=== PATIENT | male | born 2005 | race Two or more races ===

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

== ENCOUNTER 2024-03-20 09:20 | Outpatient (AMB) | payer OTHER, SELFPAY ==
[2024-03-20 10:30] VITALS: BP 122/82; PULSE 81; TEMP 36.7; O2SAT 97; BMI 39.6
--- NOTE | 2024-03-20 10:30 | AM.OFFWIN_ITS ---
Intake Vital Signs 03/20/24 10:30 Height 6 ft Weight 292 lb BMI 39.6 BP 122/82 Blood Pressure Location Lt brachial Position Sitting Pulse 81 Pulse Source Pulse Oximeter Temp 98.0 F Temp Source Oral Pulse Oximetry (%) 97 Oxygen Delivery Method Room Air Intake Visit Reasons: [employer] Severe back pain/WC Intake Note: Pt is here today c/o mid back pain lifting mop at work 03/06/24 Allergies amoxicillin [AMOXICILLIN] Allergy (Unknown, Verified 03/20/24 10:58) RASH Medication List - Last Reconciled 03/20/24 by Dee Chadwick, SOCIAL MEDIA EXECUTIVE- No Known Home Meds HPI HPI Comments History of Present Illness Details 18-year-old male here today in a workman 's comp case. 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 He reports that the pain radiates to both sides. Has been present since this incident. The pain comes and goes. Has been able to return to work however his pain worsened yesterday and this morning and that is why he is here. He has been using Aleve and stretching with some relief. He denies any red flag symptoms associated with back pain Exam Awake alert oriented Neurovascularly intact ga x4 No spinal tenderness, neck is full range of motion, no paraspinal pain or spasm. Has pain with hinge movements and with reaching overhead Plan Meloxicam daily taken with food to help the pain. Avoid OTC NSAIDs while using this medication. Okay to supplement with Tylenol if needed for breakthrough pain. Sparing use of baclofen as needed for muscle spasm. Lidocaine patches as needed. Advised to gently stretch. Avoid periods of prolonged immobility. Out of work note for today and tomorrow. Advised of the need to follow-up with primary care. Reports he does not have a primary care physician. Asked him to talk to flex the lead front end developer to establish care with a primary care provider. He will need to follow-up with occupational health or primary care provider for any other work restrictions. This note is constructed using voice recognition software. While every effort has been made to ensure accuracy in ramp jockey, still errors may have been included Sometimes, these errors may affect the content or meaning of the given sentence . [facility], [facility] Medical History No known health problems Physical Exam Vital Signs: Last Vital Signs Temp 98.0 F 03/20/24 10:30 Pulse 81 03/20/24 10:30 BP 122/82 03/20/24 10:30 Pulse Ox 97 03/20/24 10:30 Oxygen Delivery Method Room Air 03/20/24 10:30 BMI result Body Mass Index 39.6 Assessment & Plan Assessment & Plan (1) Encounter related to worker's compensation claim: Code(s): Z02.6 - Encounter for examination for insurance purposes Plan: . (2) Upper back pain: Code(s): M54.9 - Dorsalgia, unspecified Plan: . (3) Back muscle spasm: Code(s): M62.830 - Muscle spasm of back Plan: . Medications: New lidocaine 4% (Aspercreme (lidocaine)) on for 12 hours off for 12 hours 1 patch topical DAILY PRN 60 ea 0RF pain meloxicam 7.5 mg PO DAILY 14 tabs 0RF baclofen 10 mg PO BID PRN 8 tabs 0RF muscle spasm Coding Level of Care Code Est Pt Level 3 (00531) Diagnoses Encounter related to worker's compensation claim Z02.6 Upper back pain M54.9 Back muscle spasm M62.830
== END 2024-03-20 11:25 | disposition home or self-care (01) ==
PROVIDERS: Visit Provider Nurse Practitioner Family
DX: M54.9 Dorsalgia, unspecified (principal); M62.830 Muscle spasm of back; Z04.3 Encounter for examination and observation following other accident
CPT/HCPCS: 99213